=== PATIENT | female | born 1985 | race Caucasian/White ===

== ENCOUNTER 2023-11-21 08:51 | Emergency (ER) | payer SELFPAY ==
[2023-11-21 08:57] VITALS: BP 113/78; PULSE 94; TEMP 36.6; O2SAT 100; BMI 24.9
[2023-11-21 09:02] VITALS: O2SAT 100
[2023-11-21 09:37] LABS: Internal Control Within Normal Limits; SARS-CoV-2 Ag POSITIVE (NEGATIVE)
--- NOTE | 2023-11-21 09:52 | ED_ITS ---
HPI - URI/Sore Throat General Chief Complaint: Upper Respiratory Infection Stated Complaint: URTI COMPLAINTS/ EARACHE Time Seen by Provider: 11/21/23 08:53 Source: patient Limitations: no limitations History of Present Illness HPI Narrative: Patient presents to ED complaining of upper respiratory infection symptoms for the past few Days. She states that her ears were sore and she felt some sinus pressure and then today her throat was sore and she has been having some fevers and chills. She has a mild cough. She said her has similar symptoms but tested negative for COVID and she tested herself this morning and it was negati ve. She took Tylenol this morning prior to arrival. She is alert and oriented no acute distress no respiratory distress Related Data Home Medications ?Medication ?Instructions ?Recorded ?Confirmed No Known Home Medications 11/21/23 11/21/23 Allergies Allergy/AdvReac Type Severity Reaction Status Date / Time Sulfa (Sulfonamide Allergy Severe Anaphylaxis Verified 11/21/23 08:56 Antibiotics) Review of Systems ROS Status of ROS 10 or more systems reviewed and unremark able except as noted in history and below [facility] Medical History (Updated 11/21/23 @ 09:42 by Yoselin Aguirre DO) No pertinent past medical history ?Z78.9 - Other specified health status (ICD-10) Surgical History (Updated 11/21/23 @ 09:04 by Cheikh Phillips) No pertinent past surgical history ?Z78.9 - Other specified health status (ICD-10) Social History Little interest or pleasure in doing things: not at all Feeling down, depressed, or hopeless: not at all Exam Narrative Exam Narrative: General: alert, no acute distress Cardiovascular: regular rate and rhythm, normal peripheral perfusion. Respiratory: Lungs CTA, respirations non labored. Extremities: no deformity, no trauma. Neurological: oriented x 4, LOC appropriate for age. Constitutional Vital Signs, click to edit/add: Last Vital Signs Temp 97.9 F 11/21/23 08:57 Pulse 94 H 11/21/23 08:57 Resp 16 11/21/23 08:57 BP 113/78 11/21/23 08:57 Pulse Ox 100 11/21/23 09:02 O2 Del Method Room Air 11/21/23 09:02 Course Vital Signs Vital signs: Vital Signs Temperature 97.9 F 11/21/23 08:57 Pulse Rate 94 H 11/21/23 08:57 Respiratory Rate 16 11/21/23 08:57 Blood Pressure 113/78 11/21/23 08:57 Pulse Oximetry 100 11/21/23 08:57 Oxygen Delivery Method Room Air 11/21/23 08:57 Temperature 97.9 F 11/21/23 08:57 Pulse Rate 94 H 11/21/23 08:57 Respiratory Rate 16 11/21/23 08:57 Blood Pressure 113/78 11/21/23 08:57 Pulse Oximetry 100 11/21/23 09:02 Oxygen Delivery Method Room Air 11/21/23 09:02 MDM - URI/Sore Throat MDM Narrative Medical decision making narrative: Patient's test result is positive for COVID. Lungs are clear, I do not think a chest x-ray is indicated at this time. She has no acute respiratory distress no hypoxia. Take Tylenol Motrin for pain and fevers at home, stay well-hydrated. Patient is comfortable care plan for home Differential Diagnosis Differential diagnosis: Likely upper respiratory infection, viral infection, b ronchitis, influenza and other (COVID) Lab Data Attestation: I reviewed the patient's lab results. Labs: Lab Results 11/21/23 Range/Units 09:20 SARS-CoV-2 Ag (CV2AG) Positive A (NEGATIVE) Discharge Plan Discharge Chief Complaint: Upper Respiratory Infection Clinical Impression: COVID-19 Patient Disposition: Home, Self-Care Time of Disposition Decision: 09:42 Condition: Good Mode of Transportation: Private Vehicle Prescriptions / Home Meds: No Action No Known Home Medications Print Language: Lithuanian Instructions: COVID-19 (Coronavirus Disease 2019) (ED) Referrals: Holly Becerra NP [Primary Care Provider] - 1 week
== END 2023-11-21 09:59 | disposition home or self-care (01) ==
PROVIDERS: Emergency Provider Emergency Medicine; PCP Nurse Practitioner
DX: U07.1 COVID-19 (principal)
CPT/HCPCS: 87811; 99283